=== PATIENT | female | born 1990 | race African-American/Black ===

== ENCOUNTER 2018-12-25 10:23 | Emergency (ER) | payer BC ==
[~2018-12-25] VITALS: Ht 154.9 cm; Wt 73.9 kg
[~2018-12-25 10:23] MED LIST: PEPCID40 MG PO; PRENATAL
--- NOTE | 2018-12-25 10:35 | EKG ---
[address] [place] [address] ELECTROCARDIOGRAM REPORT Name: HARESHVANESA BRANDEN Room #: [facility].#: [id number] Admission: Attend Phys: Discharge: Date of : 88 Report #: [id number] THIS REPORT FOR: //name// [facility] ED Test Date: 2018-12-25 Test Time: 10:24:16 Pat Name: VANESA HUTSON Department: Room: Gender: F Display Director: MARLIN : 1990 Requested By: Lopez Elizabeth Order Number: [id number] MD: Ra Beckman Measurements Intervals [place] Rate: 59 P: 26 CA: 148 QRS: 36 QRSD: 93 T: 31 QT: 416 QTc: 413 Interpretive Statements Sinus rhythm Bradycardic rate Baseline wander Nonspecific ST-T wave changes No previous ECG available for comparison Electronically Signed On 12-25-2018 10:35:27 CDT by Ra Beckman [email or web address] <ELECTRONICALLY SIGNED> By: Ra Beckman MD 12/25/18 1035 1024 Mariaelena Beckman MD /[email or web address]
[2018-12-25 10:53] LABS: ABSOLUTE NEUTROPHILS 6.4 thou/uL (1.4-8.2); BASOPHILS 0.4 % (0.0-2.0); EOSINOPHILS 1.3 % (0.0-3.0); HEMATOCRIT 33.9 % (37.0-47.0); HEMOGLOBIN 10.7 gm/dL (12.0-15.0); LYMPHOCYTES 15.2 % (24.0-44.0); MCH 21.9 pg (26.0-34.0); MCHC 31.6 g/dL (28.0-37.0); MCV 69.3 fL (80.0-100.0); MONOCYTES 3.9 % (1.0-8.0); PLATELET COUNT 303 thou/uL (150-400); POLYS 79.2 % (36.0-66.0); RDW 19.6 % (10.5-14.5); WBC 8.1 thou/uL (4.0-11.0)
[2018-12-25 11:00] LABS: ANION GAP 6 mmol/L (7-16); BUN 11 mg/dL (7-18); CHLORIDE 105 mmol/L (98-107); CO2 29 mmol/L (21-32); CREATININE 0.7 mg/dL (0.6-1.0); GLUCOSE 68 mg/dL (74-106); POTASSIUM 4.3 mmol/L (3.5-5.1); SODIUM 140 mmol/L (136-145)
[2018-12-25 11:10] LABS: ALBUMIN 3.5 g/dL (3.4-5.0); MAGNESIUM 1.9 mg/dL (1.8-2.4); SGOT 24 U/L (15-37); SGPT 12 U/L (30-65); TOTAL BILIRUBIN 0.6 mg/dL (<0.1-1.0); TOTAL PROTEIN 7.6 g/dL (6.4-8.2); TROPONIN-I <0.06 ng/mL (<0.06)
[2018-12-25 11:41] VITALS: BP 96/53
== END 2018-12-25 11:41 | disposition home or self-care (01) ==
LOC: ER 10:23
PROVIDERS: Emergency Medicine
DX: R07.89 Other chest pain (principal); R42 Dizziness and giddiness; Z90.49 Acquired absence of other specified parts of digestive tract